=== PATIENT | male | born 1945 | race Caucasian/White ===

== ENCOUNTER 2017-02-10 13:11 | Inpatient (IN) | payer OTHER, MEDICARE ==
[~2017-02-10] VITALS: Ht 180.3 cm; Wt 82.7 kg
[2017-02-10] MEDS ORDERED: COUMADIN2 MG PO (13:46)
[2017-02-10] MEDS ORDERED: VITAMIN D32000 UNI1 PO (13:46)
[2017-02-10] MEDS ORDERED: ZOCOR40 MG PO (13:46)
[2017-02-10] MEDS ORDERED: FLOMAX0.4 MG PO (13:46)
[2017-02-10 13:47] LABS: BASOPHIL COUNT 0.1 K/uL (0-0.1); EOSINOPHIL COUNT 0.1 K/uL (0-0.3); HEMATOCRIT 31.7 % (38.0-50.0); IMMATURE GRANULOCYTE (%) 0.7 % (0.0-0.7); IMMATURE GRANULOCYTE COUNT 0.1 K/uL; LYMPHOCYTE COUNT 2.3 K/uL (1.0-2.8); MCH 29.1 PG (29.0-34.0); MCHC 32.2 G/DL (30.0-36.0); MCV 90.3 FL (86-99); MEAN PLAT.VOLUME 10.3 uM^3 (9.0-12.4); MONOCYTE (%) 10.3 % (3-12); MONOCYTE COUNT 0.9 K/uL (0-0.8); NEUTROPHIL (%) 59.7 % (45-76); PLATELET COUNT 205 K/uL (156-360); RBC DIS.WIDTH-CV 14.8 % (11.8-14.6); RBC DIS.WIDTH-SD 49.1 % (39-53); RED BLOOD COUNT 3.51 M/uL (4.00-5.50); WHITE BLOOD COUNT 8.3 K/uL (4.1-10.2)
[2017-02-10] MEDS ORDERED: MELATIN3 MG PO (13:47)
[2017-02-10] MEDS ORDERED: METFORMIN HCL500 MG PO (13:47)
[2017-02-10] MEDS ORDERED: PRILOSEC20 MG PO (13:48)
[2017-02-10] MEDS ORDERED: DAILY VALUE1 EACH PO (13:48)
[2017-02-10] MEDS ORDERED: ZOLOFT25 MG PO (13:49)
[2017-02-10] MEDS ORDERED: POTASSIUM20 MEQ/11 PO (13:49)
[2017-02-10] MEDS ORDERED: ATENOLOL100 MG PO (13:49)
[2017-02-10] MEDS ORDERED: ARICEPT5 MG PO (13:49)
[2017-02-10] MEDS ORDERED: LOVENOX100 MG/1 M SC (13:50)
[2017-02-10] MEDS ORDERED: PLENDIL10 MG PO (13:50)
[2017-02-10] MEDS ORDERED: APRESOLINE10 MG PO (13:50)
[2017-02-10] MEDS ORDERED: COZAAR100 MG PO (13:51)
[2017-02-10] MEDS ORDERED: ZOFRAN4 MG PO (13:51)
[2017-02-10] MEDS ORDERED: TYLENOL REGULA325 MG PO (13:51)
[2017-02-10] MEDS ORDERED: REMERON15 M2 PO (13:52)
[2017-02-10 13:56] LABS: INTER. NORMALIZED RATIO 4.4; PROTHROMBIN TIME 46.8 (9.2-11.2)
[2017-02-10 14:05] LABS: CHLORIDE 111 mEq/L (99-109); POTASSIUM 5.8 mEq/L (3.7-5.4); SODIUM 137 mEq/L (136-147)
[2017-02-10 14:12] LABS: GLUCOSE 113 mg/dL (70-99)
[2017-02-10 14:14] LABS: ANION GAP 8 MEQ/L (2-14); TOTAL BILIRUBIN 0.7 mg/dL (0.0-1.0)
[2017-02-10 14:16] LABS: ALKALINE PHOSPHATASE 62 IU/L (3-129); GFR ESTIMATE (CALCULATED) 27 mL/min/
[2017-02-10 14:17] LABS: UREA NITROGEN (BUN) 33 mg/dL (9-23)
[2017-02-10 16:23] LABS: CHLORIDE 111 mEq/L (99-109); POTASSIUM 4.9 mEq/L (3.7-5.4); SODIUM 139 mEq/L (136-147)
[2017-02-10 16:24] LABS: GLUCOSE 129 mg/dL (70-99)
[2017-02-10 16:26] LABS: ANION GAP 8 MEQ/L (2-14)
[2017-02-10 16:28] LABS: GFR ESTIMATE (CALCULATED) 30 mL/min/
[2017-02-10 16:29] LABS: UREA NITROGEN (BUN) 32 mg/dL (9-23)
[2017-02-10 16:56] VITALS: BP 124/60
[2017-02-10 17:03] LABS: POINT-OF-CARE METER ID UU14174225
[2017-02-10 20:00] VITALS: BP 98/52
[2017-02-11] VITALS (7 sets, daily range): BP systolic 88–132; BP diastolic 48–73
[2017-02-11 08:28] LABS: EOSINOPHIL (%) 2.4 % (0-5); EOSINOPHIL COUNT 0.1 K/uL (0-0.3); HEMATOCRIT 27.2 % (38.0-50.0); IMMATURE GRANULOCYTE (%) 0.6 % (0.0-0.7); INSTRUMENT ABS NEUTROPHIL CT 2.8 K/uL; LYMPHOCYTE COUNT 1.6 K/uL (1.0-2.8); MCH 30.1 PG (29.0-34.0); MCHC 33.5 G/DL (30.0-36.0); MCV 90.1 FL (86-99); MEAN PLAT.VOLUME 10.7 uM^3 (9.0-12.4); MONOCYTE (%) 3.6 % (3-12); MONOCYTE COUNT 0.2 K/uL (0-0.8); NEUTROPHIL (%) 59.4 % (45-76); NEUTROPHIL COUNT 2.8 K/uL (1.8-6.4); PLATELET COUNT 168 K/uL (156-360); RBC DIS.WIDTH-SD 48.7 % (39-53); RED BLOOD COUNT 3.02 M/uL (4.00-5.50); WHITE BLOOD COUNT 4.7 K/uL (4.1-10.2)
[2017-02-11 08:50] LABS: ANION GAP 7 MEQ/L (2-14); CHLORIDE 112 MEQ/L (99-109); GFR ESTIMATE (CALCULATED) 38 mL/min/; MAGNESIUM 1.3 mg/dl (1.3-2.7); POTASSIUM 4.9 MEQ/L (3.7-5.4); SAMPLE HEMOLYSIS CHECK 0; SAMPLE ICTERIC CHECK 0; SAMPLE LIPEMIA CHECK 0; SODIUM 141 MEQ/L (136-147); UREA NITROGEN (BUN) 30 mg/dL (9-23); URIC ACID 7.5 mg/dL (3.1-9.2)
[2017-02-11 08:51] LABS: INTER. NORMALIZED RATIO 2.7; PROTHROMBIN TIME 28.5 (9.2-11.2)
[2017-02-11 09:00] LABS: INTACT PARATHYROID HORMONE 26 pg/mL (10-69)
[2017-02-11 09:06] LABS: GLUCOSE 91 mg/dL (70-99)
[2017-02-11 16:36] LABS: POINT-OF-CARE METER ID UU13113717
[2017-02-12 03:49] VITALS: BP 150/66
[2017-02-12 06:55] LABS: HEMATOCRIT 23.8 % (38.0-50.0); MCHC 33.6 G/DL (30.0-36.0); MCV 89.1 FL (86-99); MEAN PLAT.VOLUME 10.3 uM^3 (9.0-12.4); PLATELET COUNT 134 K/uL (156-360); RBC DIS.WIDTH-CV 14.8 % (11.8-14.6); RBC DIS.WIDTH-SD 48.2 % (39-53); RED BLOOD COUNT 2.67 M/uL (4.00-5.50); WHITE BLOOD COUNT 4.6 K/uL (4.1-10.2)
[2017-02-12 07:15] LABS: ANION GAP 9 MEQ/L (2-14); CHLORIDE 113 MEQ/L (99-109); GFR ESTIMATE (CALCULATED) 49 mL/min/; GLUCOSE 92 mg/dL (70-99); POTASSIUM 4.3 MEQ/L (3.7-5.4); SAMPLE HEMOLYSIS CHECK 0; SAMPLE ICTERIC CHECK 0; SAMPLE LIPEMIA CHECK 0; SODIUM 143 MEQ/L (136-147); UREA NITROGEN (BUN) 25 mg/dL (9-23)
[2017-02-12 07:20] LABS: INTER. NORMALIZED RATIO 2.4; PROTHROMBIN TIME 24.8 (9.2-11.2)
[2017-02-12 08:36] VITALS: BP 114/75
[2017-02-12] MEDS ORDERED: POTASSIUM20 MEQ/11 PO (11:54)
[2017-02-12] MEDS ORDERED: LOVENOX100 MG/1 M SC (11:55)
[2017-02-12] MEDS ORDERED: WARFARIN SODIU2.5 MG PO (11:57)
[2017-02-12] MEDS ORDERED: COUMADIN2 MG PO (11:58)
[2017-02-12 12:42] LABS: IRON 47 MCG/DL (35-150)
[2017-02-12 12:54] VITALS: BP 103/67
[2017-02-12 13:00] LABS: FERRITIN 298 NG/ML (22-322)
[2017-02-12 16:50] LABS: POINT-OF-CARE METER ID UU14174225
[2017-02-12 17:25] VITALS: BP 103/54
[2017-02-12 20:20] VITALS: BP 130/60
[2017-02-13] VITALS (9 sets, daily range): BP systolic 98–142; BP diastolic 50–66
[2017-02-13 05:59] LABS: HEMATOCRIT 23.1 % (38.0-50.0); MCH 29.9 PG (29.0-34.0); MCHC 32.9 G/DL (30.0-36.0); MCV 90.9 FL (86-99); PLATELET COUNT 132 K/uL (156-360); RBC DIS.WIDTH-CV 14.8 % (11.8-14.6); RBC DIS.WIDTH-SD 47.8 % (39-53); RED BLOOD COUNT 2.54 M/uL (4.00-5.50); WHITE BLOOD COUNT 4.5 K/uL (4.1-10.2)
[2017-02-13 06:10] LABS: INTER. NORMALIZED RATIO 2.1; PROTHROMBIN TIME 21.7 (9.2-11.2)
[2017-02-13 06:24] LABS: ANION GAP 9 MEQ/L (2-14); CHLORIDE 116 MEQ/L (99-109); GFR ESTIMATE (CALCULATED) 58 mL/min/; GLUCOSE 96 mg/dL (70-99); SAMPLE HEMOLYSIS CHECK 0; SAMPLE ICTERIC CHECK 0; SAMPLE LIPEMIA CHECK 0; SODIUM 144 MEQ/L (136-147); UREA NITROGEN (BUN) 20 mg/dL (9-23)
[2017-02-13 12:56] LABS: POINT-OF-CARE METER ID UU13113717
[2017-02-13 16:32] LABS: POINT-OF-CARE METER ID UU14174225
[2017-02-14 00:17] VITALS: BP 131/61
[2017-02-14 04:32] VITALS: BP 148/66
[2017-02-14 05:41] LABS: HEMATOCRIT 24.4 % (38.0-50.0); MCH 29.6 PG (29.0-34.0); MCHC 33.2 G/DL (30.0-36.0); MCV 89.1 FL (86-99); MEAN PLAT.VOLUME 10.3 uM^3 (9.0-12.4); PLATELET COUNT 160 K/uL (156-360); RBC DIS.WIDTH-CV 14.9 % (11.8-14.6); RBC DIS.WIDTH-SD 47.9 % (39-53); RED BLOOD COUNT 2.74 M/uL (4.00-5.50); WHITE BLOOD COUNT 5.8 K/uL (4.1-10.2)
[2017-02-14 05:53] LABS: INTER. NORMALIZED RATIO 1.8; PROTHROMBIN TIME 18.4 (9.2-11.2)
[2017-02-14 08:00] VITALS: BP 150/67
[2017-02-14] MEDS ORDERED: DRONABINOL2.5 MG PO (12:46)
[2017-02-14 15:10] VITALS: BP 100/50
[2017-02-14 19:27] VITALS: BP 134/62
== END 2017-02-14 19:30 | disposition home or self-care (01) | DRG 683 ==
LOC: EME 13:11 → EDOF 15:21 → 5SOUTH 15:21
PROVIDERS: Emergency Medicine; Internal Medicine; Internal Medicine Nephrology; Nurse Practitioner Adult Health
PROC: 30233N1 Transfusion of Nonautologous Red Blood Cells into Peripheral Vein, Percutaneous Approach (ICD-10-PCS; principal; 2017-02-13)
DX: N17.9 Acute kidney failure, unspecified (principal); E87.5 Hyperkalemia; Z86.718 Personal history of other venous thrombosis and embolism; F03.90 Unspecified dementia, unspecified severity, without behavioral disturbance, psychotic disturbance, mood disturbance, and anxiety; D64.9 Anemia, unspecified; E78.5 Hyperlipidemia, unspecified; E87.2 Acidosis; E86.0 Dehydration; N28.1 Cyst of kidney, acquired; Z79.01 Long term (current) use of anticoagulants; N40.1 Benign prostatic hyperplasia with lower urinary tract symptoms; E11.22 Type 2 diabetes mellitus with diabetic chronic kidney disease; I12.9 Hypertensive chronic kidney disease with stage 1 through stage 4 chronic kidney disease, or unspecified chronic kidney disease; N18.9 Chronic kidney disease, unspecified; M16.12 Unilateral primary osteoarthritis, left hip; D68.32 Hemorrhagic disorder due to extrinsic circulating anticoagulants; T45.515A Adverse effect of anticoagulants, initial encounter; N13.8 Other obstructive and reflux uropathy; I82.621 Acute embolism and thrombosis of deep veins of right upper extremity; R33.8 Other retention of urine
CPT/HCPCS: 73502; 76770; 80048; 80048 91; 80053; 81003; 82306; 82570; 82607; 82728; 82746; 82948; 83540; 83735; 83970; 84100; 84156; 84466; 84550; 85025; 85027; 85610; 86900; 86901; 86920; 93005; 99281; 99285; G0103; J1815; J7030; P9016; Q0167